=== PATIENT | female | born 1995 | race Caucasian/White ===

== ENCOUNTER 2019-01-09 08:51 | Emergency (ER) | payer OTHER ==
[2019-01-09] MEDS: LIDOCAINE 1% (MDV) 20 ML INJ SC (09:32)
== END 2019-01-09 10:50 | disposition home or self-care (01) ==
LOC: FTE 08:51
DX: Z48.01 Encounter for change or removal of surgical wound dressing (principal)
CPT/HCPCS: 99282; Z7502